=== PATIENT | male | born 1980 | race Caucasian/White ===

== ENCOUNTER 2022-04-17 06:27 | Emergency (ER) | payer BC ==
[2022-04-17] MEDS ORDERED: Ketorolac 30 MG/ML SDV IM ONE (06:43)
[2022-04-17] MEDS ORDERED: predniSONE 20 MG Tab PO ONE (06:43)
== END 2022-04-17 07:01 | disposition home or self-care (01) ==
LOC: MW.ED 06:27
DX: M10.9 Gout, unspecified (principal); I10 Essential (primary) hypertension
CPT/HCPCS: 96372; 99283; A9270; J1885